=== PATIENT | male | born 1990 | race Caucasian/White ===

== ENCOUNTER 2019-03-26 11:58 | Emergency (ER) | payer SELFPAY ==
[~2019-03-26] VITALS: Ht 180.3 cm; Wt 79.4 kg
[2019-03-26 12:04] VITALS: BP 130/80
--- NOTE | 2019-03-26 12:08 | NUR ---
PATIENT AMBULATED TO BED 11 AT THIS TIME.
--- NOTE | 2019-03-26 12:13 | NUR ---
DR. ESTRADA AT BEDSIDE TO EVALUATE PT.
[2019-03-26] MEDS ORDERED: CLINDAMYCIN 600 MG/4 ML VIAL IM ONE (12:20)
[2019-03-26] MEDS ORDERED: DEXAMETHASONE 10 MG/ML VIAL IM ONE (12:20)
[2019-03-26] MEDS ORDERED: hydrOXYzine HCL 25 MG TAB PO ONE (12:20)
--- NOTE | 2019-03-26 12:20 | NUR ---
A&OX4, BREATHING EVEN AND UNLABORED. SKIN WARM, PINK, AND DRY. C/O GENERALIZED BODY ACHES, FATIGUE, MALAISE, NAUSEA X 3 DAYS. VOMITING X 1 LAST NIGHT. PT CONCERNED THAT HE WAS "BITTEN BY MOSQUITOS" ON RUE AND NOW HAS WEST NILE VIRUS.
--- NOTE | 2019-03-26 12:53 | NUR ---
Patient discharged with v/s stable. Written and verbal after care instructions given and explained. Patient alert, oriented and verbalized understanding of instructions. Ambulatory with steady gait. All questions addressed prior to discharge. ID band removed. Patient advised to follow up with PMD. Rx of CLINDAMYCIN, PREDNISONE, MOTRINE given. Patient educated on indication of medication including possible reaction and side effects. Opportunity to ask questions provided and answered.
[2019-03-26 12:54] VITALS: BP 141/79
== END 2019-03-26 12:53 | disposition home or self-care (01) ==
LOC: EEVIPCON 11:58 → MED 11:58
DX: J03.90 Acute tonsillitis, unspecified (principal)
CPT/HCPCS: 96372; 99283; J1100; J3490